=== PATIENT | male | born 1970 | race African-American/Black ===

== ENCOUNTER 2016-07-17 17:20 | Emergency (ER) | payer OTHER ==
[2016-07-17] MEDS ORDERED: ASPIRIN 81 MG CHEW TAB ONE (17:48)
== END 2016-07-17 22:13 | disposition home or self-care (01) ==
LOC: ER 17:20
DX: R42 Dizziness and giddiness (principal); R07.2 Precordial pain; G45.8 Other transient cerebral ischemic attacks and related syndromes
CPT/HCPCS: 36415; 70450; 71010; 80053; 82550; 83735; 84484; 85025; 85610; 85730; 93005